=== PATIENT | male | born 1945 | race Caucasian/White ===

== ENCOUNTER 2021-05-01 23:13 | Observation (INO) | payer MEDICARE, OTHER ==
[~2021-05-01] VITALS: Ht 182.9 cm; Wt 101.8 kg
[2021-05-02 00:06] LABS: BASOPHILS % (AUTO) 0 % (0-1); EOSINOPHILS % (AUTO) 4 % (1-7); LYMPHOCYTES % (AUTO) 21 % (22-44); MEAN CORPUSCULAR HGB CONC 32.9 g/dL (33.2-36.2); MONOCYTES % (AUTO) 8 % (2-9); NEUTROPHILS % (AUTO) 67 % (42-75); PLATELET COUNT 229 x10^3/uL (130-400); RED BLOOD COUNT 4.02 x10^6/uL (4.38-5.82); RED CELL DISTRIBUTION WIDTH 13.4 % (9.4-14.8)
[2021-05-02 00:16] LABS: ALANINE AMINOTRANSFERASE 33 U/L (12-78); ALBUMIN 2.9 g/dL (3.4-5.0); ANION GAP 7 mmol/L (5-15); CALCIUM 8.3 mg/dL (8.5-10.1); CHLORIDE 113 mmol/L (98-107)
[2021-05-02 00:19] LABS: ALKALINE PHOSPHATASE 52 U/L (45-117); BILIRUBIN,TOTAL 0.6 mg/dL (0.2-1.0); CREATININE 1.78 mg/dL (0.7-1.3); TOTAL PROTEIN 6.7 g/dL (6.4-8.2)
--- NOTE | 2021-05-02 00:21 | NUR ---
Attempted to straight cath patient. Pt unable to be straight cathed due to anatomy of pts penis. Pt has overgrown skin over top of the meatus and urethra. Urinary meatus not able to be visualized or cathed. Attempted x1 to cath the small opening of skin that was visualized. Unable to insert/advance cath. MD Funes aware.
--- NOTE | 2021-05-02 01:23 | NUR ---
Report given to GUME Bustamante no further questions at this time.
[2021-05-02] MEDS ORDERED: ACETAMINOPHEN 325 MG TABLET PO PRN ×2 (01:30→14:00)
[2021-05-02] MEDS ORDERED: ENALAPRILAT 1.25 MG/ML, 2ML IVPush PRN (01:30)
[2021-05-02] MEDS ORDERED: DOCUSATE 100 MG CAPSULE PO PRN (01:30)
[2021-05-02] MEDS ORDERED: ONDANSETRON 2MG/ML, 2ML IVPush PRN (01:30)
[2021-05-02] MEDS ORDERED: OXYcodone IR 5MG TABLET PO PRN (01:30)
[2021-05-02] MEDS ORDERED: GUAIFENESIN/DM 200-20MG, 10ML UDC PO PRN (01:30)
[2021-05-02] MEDS ORDERED: TEMAZEPAM 15 MG CAPSULE PO PRN (01:30)
[2021-05-02] MEDS ORDERED: METHOCARBAMOL 500 MG TABLET PO PRN (01:30)
[2021-05-02 01:53] VITALS: BP 106/60
[2021-05-02] MEDS: SODIUM CHLORIDE 0.9% 1,000 ML IV SCH ×3 (02:00→22:09)
[2021-05-02] MEDS ORDERED: TRAZ-96 PO (04:12)
[2021-05-02] MEDS ORDERED: RIVA15TA PO (04:12)
[2021-05-02 06:05] LABS: MICROSCOPIC AUTO
[2021-05-02 07:00] VITALS: BP 113/61
[2021-05-02] MEDS ORDERED: CHLORHEXIDINE 15 ML UDC ONE (10:42)
[2021-05-02] MEDS ORDERED: OMNIPAQUE 350 MG/ML, 50 ML BOTTLE ONE (10:59)
[2021-05-02] MEDS ORDERED: FENTANYL PF 100 MCG/2ML ONE ×2 (11:39→12:09)
[2021-05-02] MEDS ORDERED: BACITRACIN OINT 500U/GM, 15 GM ONE (12:23)
[2021-05-02] MEDS ORDERED: BUPIVACAINE/PF 0.5% ONE (12:28)
[2021-05-02] MEDS ORDERED: BUPIVACAINE/PF 0.5% INFIL ONE (13:08)
[2021-05-02] MEDS ORDERED: BACITRACIN OINT 500U/GM, 15 GM TP ONE (13:09)
[2021-05-02] MEDS ORDERED: SUCCINYLCHOLINE 20 MG/ML, 10ML ONE (13:13)
[2021-05-02] MEDS ORDERED: DEXAMETHASONE 4 MG/ML, 1ML ONE (13:13)
[2021-05-02] MEDS ORDERED: GLYCOPYRROLATE 0.2MG/1ML, 5ML ONE (13:13)
[2021-05-02] MEDS ORDERED: ONDANSETRON 2MG/ML, 2ML ONE (13:13)
[2021-05-02] MEDS ORDERED: NEOSTIGMINE 1 MG/ML, 10ML ONE (13:13)
[2021-05-02] MEDS ORDERED: PROPOFOL 10 MG/ML, 20ML ONE (13:13)
[2021-05-02] MEDS ORDERED: CEFAZOLIN 1,000 MG ONE (13:13)
[2021-05-02] MEDS ORDERED: ROCURONIUM 10MG/ML,5ML ONE (13:13)
[2021-05-02] MEDS ORDERED: OXYcodone 5 MG/5 ML ORAL.SOL UDC PO PRN (14:00)
[2021-05-02] MEDS ORDERED: HYDROmorphone 1 MG/ML, 1ML INJ IVPush PRN (14:00)
[2021-05-02] MEDS ORDERED: FENTANYL PF 100 MCG/2ML IV PRN (14:00)
[2021-05-02 14:48] VITALS: BP 106/61
[2021-05-02 18:41] VITALS: BP 95/55
[2021-05-02 23:56] VITALS: BP 101/54
[2021-05-03 04:28] VITALS: BP 112/63
[2021-05-03 05:19] LABS: BASOPHILS % (AUTO) 0 % (0-1); EOSINOPHILS % (AUTO) 2 % (1-7); LYMPHOCYTES % (AUTO) 17 % (22-44); MEAN CORPUSCULAR HEMOGLOBIN 32.4 pg (27.5-34.5); MEAN CORPUSCULAR HGB CONC 33.6 g/dL (33.2-36.2); MEAN PLATELET VOLUME 7.3 fL (7.4-10.4); MONOCYTES % (AUTO) 7 % (2-9); NEUTROPHILS % (AUTO) 73 % (42-75); PLATELET COUNT 229 x10^3/uL (130-400); RED BLOOD COUNT 3.81 x10^6/uL (4.38-5.82); RED CELL DISTRIBUTION WIDTH 13.5 % (9.4-14.8)
[2021-05-03 05:30] LABS: ANION GAP 8 mmol/L (5-15); CALCIUM 7.9 mg/dL (8.5-10.1); CHLORIDE 115 mmol/L (98-107); CREATININE 1.57 mg/dL (0.7-1.3)
[2021-05-03 07:44] VITALS: BP 103/57
[2021-05-03] MEDS: POTASSIUM CHLORIDE 20 MEQ TAB.ER.PRT PO SCH ×2 (08:38→12:21)
[2021-05-03] MEDS: SODIUM CHLORIDE 0.9% 1,000 ML IV SCH (11:42)
[2021-05-03] MEDS ORDERED: POTASSIUM CHLORIDE 20 MEQ PACKET ONE (12:21)
[2021-05-03 13:59] VITALS: BP 119/72
== END 2021-05-03 14:53 | disposition home or self-care (01) ==
LOC: ED 23:44 → INTOOBSV 05-02 01:12 → EDIP 05-02 01:12 → 3WST 05-02 01:35
PROVIDERS: ADMIT Internal Medicine; ATTEND Hospitalist
DX: N13.6 Pyonephrosis (principal); Z20.822 Contact with and (suspected) exposure to COVID-19; N47.1 Phimosis; N39.0 Urinary tract infection, site not specified; Q55.64 Hidden penis; N17.9 Acute kidney failure, unspecified; N13.8 Other obstructive and reflux uropathy; I48.91 Unspecified atrial fibrillation; E87.6 Hypokalemia; E87.8 Other disorders of electrolyte and fluid balance, not elsewhere classified; D64.9 Anemia, unspecified; Z86.711 Personal history of pulmonary embolism; Z79.899 Other long term (current) drug therapy; Z79.01 Long term (current) use of anticoagulants; Z87.442 Personal history of urinary calculi
CPT/HCPCS: 36415; 52353; 52356; 54001; 74018; 80048; 80053; 81001; 85025; 87635; 93005; 96360; 96361; 99285; C1758; C1769; C2617; G0378; J0330; J0690; J1100; J2405; J2704; J3010; J7030; S0020; 76000; J2710; Q9967